=== PATIENT | female | born 1995 | race Caucasian/White ===

== ENCOUNTER 2017-11-08 14:52 | Emergency (ER) | payer OTHER ==
[~2017-11-08] VITALS: Ht 152.4 cm; Wt 76.2 kg
[2017-11-08 15:24] VITALS: BP 115/79
--- NOTE | 2017-11-08 15:57 | NUR ---
22b bib self with c/o abnormal vaginal bleeding x <2 years. 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 Pt sent here for abnormal lab work from pcp. Pt sts US done this past Wednesday, but waiting for results. Currently, pt is changing pads q2hrs and bleeding with blood clots. Pt also reports of 4/10 inguinal pain with tenderness to palpation. Pt also reports of nausea nad dizziness x 1 month. Pt is aox4. RR are even and unlabored. No acute distress at this time. Will continue to monitor.
--- NOTE | 2017-11-08 16:08 | NUR ---
lab by bedside
[2017-11-08 16:22] LABS: BASOPHILS # (AUTO) 0.3 K/uL (0.00-0.22); EOSINOPHILS # (AUTO) 0.2 K/uL (0-0.4); HEMATOCRIT 27.3 % (36-48); HEMOGLOBIN 7.9 g/dL (12.0-16.0); MEAN CORPUSCULAR HEMOGLOBIN 19 pg (27-31); MEAN CORPUSCULAR HGB CONC 29 g/dL (33-37); MEAN CORPUSCULAR VOLUME 66 fL (80-94); MONOCYTES # (AUTO) 0.4 K/uL (0.8-1.0); NEUTROPHILS # (AUTO) 4.4 K/uL (1.8-7.7); PLATELET COUNT (AUTO) 527 K/uL (140-450); RED BLOOD CELL COUNT(AUTO) 4.17 MIL/uL (4.20-5.40); RED CELL DISTRIBUTION WIDTH 16.3 % (11.6-13.7); WHITE BLOOD COUNT (AUTO) 8.3 K/uL (4.8-10.8)
[2017-11-08 16:38] LABS: POTASSIUM 3.7 mmol/L (3.5-5.1)
[2017-11-08 16:39] LABS: ALBUMIN 3.7 g/dL (3.4-5.0); ANION GAP 14.2 (8-16); CARBON DIOXIDE 26.5 mmol/L (21-32); CREATININE 0.6 mg/dL (0.6-1.3); TOTAL BILIRUBIN 0.2 mg/dL (0.0-1.0)
--- NOTE | 2017-11-08 19:14 | NUR ---
Pt report given to Savannah WEI. Transfer of care at this time.
--- NOTE | 2017-11-08 20:10 | NUR ---
Patient discharged with v/s stable. Written and verbal after care instructions given and explained. Patient alert, oriented and verbalized understanding of instructions. Ambulatory with by parent. All questions addressed prior to discharge. ID band removed. Patient advised to follow up with PMD. Rx of NAPROSYN 375MG, LOW IRON given. Patient educated on indication of medication including possible reaction and side effects. Opportunity to ask questions provided and answered.
[2017-11-08 20:23] VITALS: BP 106/73
== END 2017-11-08 20:10 | disposition home or self-care (01) ==
LOC: MED 14:52
DX: D50.0 Iron deficiency anemia secondary to blood loss (chronic) (principal)
CPT/HCPCS: 36415; 76830; 80053; 84702; 85025; 86886; 86900; 86901; 99285; Q0092